=== PATIENT | female | born 1985 | race Hispanic/Latino ===

== ENCOUNTER 2020-07-14 17:00 | Emergency (ER) | payer SELFPAY ==
[2020-07-14] MEDS ORDERED: ALBUTEROL 2.5 MG/3 ML NEBU IH ONE (17:33)
[2020-07-14] MEDS ORDERED: dexAMETHasone 20 MG/5 ML VIAL IV ONE (17:33)
[2020-07-14] MEDS ORDERED: IPRATROPIUM 0.02% NEBU 2.5 ML IH ONE (17:33)
--- NOTE | 2020-07-14 17:33 | Event Note ---
ED Screening Note ED Screening Note: cough three days ago +mucus production 1/2 ppd no hx of asthma postussive vomiting diarrhea for a week +low grade fever +SOB PMHx h pylori, bronchitis no allergies to meds LNMP: last month This initial assessment/diagnostic orders/clinical plan/treatment(s) is/are subject to change based on patients health status, clinical progression and re- assessment by fellow clinical providers in the ED. Further treatment and workup at subsequent clinical providers discretion. Patient/guardian urged not to elope from the ED as their condition may be serious if not clinically assessed and managed. Initial orders include: labs, CXR, neb tx, steroids
[2020-07-14] MEDS ORDERED: SODIUM CHLORIDE 0.9% 1000 ML 1,000 ML IV ONE (18:05)
[2020-07-14] MEDS ORDERED: MAGNESIUM SULFATE 2 GM/50 ML BAG IV ONE (18:05)
--- NOTE | 2020-07-14 18:09 | Emergency Department Report ---
<ALICIA MEDINA - Last Filed: 07/14/20 19:21> - General Chief Complaint: Upper Respiratory Infection Stated Complaint: SOB/CARLINE PUI?: Yes Time Seen by Provider: 07/14/20 17:31 Source: patient Mode of arrival: Ambulatory Limitations: No Limitations - History of Present Illness Initial Comments: 35-year-old female presents to the emergency room for 3-day history of shortness of breath difficulty in breathing productive cough low-grade fever posttussis emesis. Patient states that a headache started with a dry cough on Wednesday and has gotten worse last night to the point she needed to come in. Patient reports she tried to go to several urgent cares but they refused to see her secondary to concern for Covid. Patient denies any past medical history of asthma but does report a history of bronchitis. MD Complaint: fever, cough, nasal congestion Onset/Timin -: days(s) Severity: severe Severity scale (0 -10): 8 Consistency: constant Improves With: nothing Worsens With: activity, deep breaths Associated Symptoms: fever, chills, headache, rhinorrhea, cough, shortness of breath, nausea, vomiting Treatments Prior to Arrival: none - Related Data Previous Rx's Medication Instructions Recorded Last Taken Type Albuterol Sulfate [Proventil Hfa] 1 - 2 puff IH Q6H PRN #1 hfa.aer.ad 07/14/20 Unknown Rx Azithromycin [Zithromax Z-JOSEPH] 250 mg PO DAILY #6 tablet 07/14/20 Unknown Rx Benzonatate [Tessalon Perles] 100 mg PO Q8HR #30 capsule 07/14/20 Unknown Rx Cetirizine HCl [Zyrtec 10mg tab] 10 mg PO DAILY #30 tablet 07/14/20 Unknown Rx Ibuprofen [Motrin] 800 mg PO Q8HR PRN #24 tablet 07/14/20 Unknown Rx Prednisone [predniSONE 10 mg 10 mg PO .TAPER #21 tab.ds.pk 07/14/20 Unknown Rx (6-Day Pack, 21 Tabs)] Allergies Allergy/AdvReac Type Severity Reaction Status Date / Time No Known Allergies Allergy Unverified 07/14/20 17:06 ED Review of Systems Comment: All other systems reviewed and negative ED Past Medical Hx - Past Medical History Previous Medical History?: Yes Additional medical history: bronchitis - Surgical History Past Surgical History?: Yes Additional Surgical History: x 2, Tubaligation, T &A, Foster tooth extraction - Social History Smoking Status: Current Every Day Smoker Substance Use Type: Alcohol - Medications Home Medications: Home Medications Medication Instructions Recorded Confirmed Last Taken Type Albuterol Sulfate [Proventil Hfa] 1 - 2 puff IH Q6H PRN #1 hfa.aer.ad 07/14/20 Unknown Rx Azithromycin [Zithromax Z-JOSEPH] 250 mg PO DAILY #6 tablet 07/14/20 Unknown Rx Benzonatate [Tessalon Perles] 100 mg PO Q8HR #30 capsule 07/14/20 Unknown Rx Cetirizine HCl [Zyrtec 10mg tab] 10 mg PO DAILY #30 tablet 07/14/20 Unknown Rx Ibuprofen [Motrin] 800 mg PO Q8HR PRN #24 tablet 07/14/20 Unknown Rx Prednisone [predniSONE 10 mg 10 mg PO .TAPER #21 tab.ds.pk 07/14/20 Unknown Rx (6-Day Pack, 21 Tabs)] ED Physical Exam - General Limitations: No Limitations General appearance: alert, in distress - Head Head exam: Present: atraumatic, normocephalic - Eye Eye exam: Present: normal appearance - ENT ENT exam: Present: mucous membranes moist - Neck Neck exam: Present: normal inspection, full ROM - Respiratory Respiratory exam: Present: wheezes, prolonged expiratory, other (cough) - Cardiovascular Cardiovascular Exam: Present: bradycardia - GI/Abdominal GI/Abdominal exam: Present: soft, normal bowel sounds - Extremities Exam Extremities exam: Present: normal inspection, full ROM - Back Exam Back exam: Present: normal inspection, full ROM - Neurological Exam Neurological exam: Present: alert, oriented X3, normal gait - Psychiatric Psychiatric exam: Present: normal affect, normal mood - Skin Skin exam: Present: warm, dry, intact, normal color. Absent: rash ED Medical Decision Making - Radiology Data Radiology results: report reviewed Patient: GARFIELD FONTANA MR#: [id number] : 1985 Acct:[id number] Age/Sex: 35 / F ADM Date: 07/14/20 Loc: ED Attending Dr: Ordering Physician: YAW ONEILL Date of Service: 07/14/20 Procedure(s): XR chest routine 2V Accession Number(s): [id number] cc: YAW ONEILL Fluoro Time In Minutes: CHEST 2 VIEWS INDICATION / CLINICAL INFORMATION: Cough and difficulty breathing for 2 days. COMPARISON: None available. FINDINGS: SUPPORT DEVICES: None. HEART / MEDIASTINUM: The heart size and pulmonary vasculature are normal. LUNGS / PLEURA: No significant pulmonary or pleural abnormality. No pneumothorax. ADDITIONAL FINDINGS: No significant additional findings. IMPRESSION: No acute findings. Signer Name: Fabien Smith MD Signed: 07/14/2020 7:10 PM Workstation Name: [id number] Transcribed By: RT Dictated By: Fabien Smith MD Electronically Authenticated By: Fabien Smith MD Signed Date/Time: 07/14/201909 DD/ 08 TD/TT: - Medical Decision Making 35-year-old female presents to the emergency room for 3-day history of shortness of breath difficulty in breathing productive cough low-grade fever posttussis emesis. Patient states that a headache started with a dry cough on Wednesday and has gotten worse last night to the point she needed to come in. Patient reports she tried to go to several urgent cares but they refused to see her secondary to concern for Covid. Patient denies any past medical history of asthma but does report a history of bronchitis. Patient has been ordered CBC, CMP, chest x-ray, IV magnesium 2 mg, normal saline, dexamethasone 10 mg IV. Albuterol and Atrovent neb 10 and 1. ED Disposition Clinical Impression: Chronic bronchitis with acute exacerbation, Shortness of breath, Acute upper respiratory infection Disposition: - TO HOME OR SELFCARE Condition: Stable Instructions: Chronic Bronchitis (ED), Shortness of Breath, Adult, [id number], Upper Respiratory Infection, Adult, [id number], Acute Bronchitis, Adult, [id number], Cough, Adult, [id number] Additional Instructions: All lab test results are nonactionable. Chest x-ray shows no acute cardiopulmonary abnormalities or pneumonitis. Therefore take medication as advised, drink plenty of fluids and follow-up with the primary care physician at [facility] primary care in 3 to 5 days for reevaluation. Return to the ED immediately if symptoms get worse. Consider quitting tobacco smoking habit to improve on the chronic bronchitis. Prescriptions: Ibuprofen [Motrin] 800 mg PO Q8HR PRN #24 tablet PRN Reason: Pain , Severe (7-10) Prednisone [predniSONE 10 mg (6-Day Pack, 21 Tabs)] 10 mg PO .TAPER #21 t ab.ds.pk Albuterol Sulfate [Proventil Hfa] 1 - 2 puff IH Q6H PRN #1 hfa.aer.ad PRN Reason: Dyspnea Benzonatate [Tessalon Perles] 100 mg PO Q8HR #30 capsule Azithromycin [Zithromax Z-JOSEPH] 250 mg PO DAILY #6 tablet Cetirizine HCl [Zyrtec 10mg tab] 10 mg PO DAILY #30 tablet Forms: Work/School Release Form(ED) Print Language: DOMINICAN <JOSE LUIS CARVAJAL - Last Filed: 07/14/20 21:06> ED Review of Systems ROS: Stated complaint: SOB/CARLINE Other details as noted in HPI ED Course Vital Signs 07/14/20 07/14/20 17:06 18:17 Temperature 98 F Pulse Rate 109 H Respiratory 22 Rate Blood Pressure 173/88 ED Medical Decision Making - Lab Data Result diagrams: 07/14/20 19:56 07/14/20 19:56 - Medical Decision Making I assumed care of the patient from Ms. Alberto María MILIAN at shift change at 2000 hours. Patient had presented to the ED with complaint of shortness of breath, persistent cough with subjective fever and posttussive emesis. In the ED, patient received DuoNeb treatment, steroid and magnesium 2 g IV x1. On reevaluation, patient's wheezing resolved with medication, patient felt better and oxygen saturation was 97% in room air. All lab test results were reviewed and are all nonactionable except for acute leukocytosis of 15,600 which is nonspecific. Chest x-ray shows no acute cardiopulmonary abnormalities or pneumonitis. Patient was discharged home on medications and advised to consider quitting tobacco abuse. Patient was also advised to follow-up with her primary care physician at [facility] in 3 to 5 days for reevaluation. Patient was advised return to the ED immediately if symptoms get worse. - Differential Diagnosis Bronchitis; pneumonia; URI; viral syndrome; COVID-19 Critical care attestation.: If time is entered above; I have spent that time in minutes in the direct care of this critically ill patient, excluding procedure time. ED Disposition Is pt being admited?: No Does the pt Need Aspirin: No Time of Disposition: 20:52
--- NOTE | 2020-07-14 19:14 | XRay Report ---
CHEST 2 VIEWS INDICATION / CLINICAL INFORMATION: Cough and difficulty breathing for 2 days. COMPARISON: None available. FINDINGS: SUPPORT DEVICES: None. HEART / MEDIASTINUM: The heart size and pulmonary vasculature are normal. LUNGS / PLEURA: No significant pulmonary or pleural abnormality. No pneumothorax. ADDITIONAL FINDINGS: No significant additional findings. IMPRESSION: No acute findings. Signer Name: Fabien Smith MD Signed: 07/14/2020 7:10 PM Workstation Name: [id number]
[2020-07-14 20:19] LABS: Hematocrit 35.2 % (30.3-42.9); Hemoglobin 10.8 gm/dl (10.1-14.3); Mean Corpuscular HGB Conc 31 % (30-34); Mean Corpuscular Volume 76 fl (79-97); Platelet Count 317 K/mm3 (140-440); Red Blood Count 4.62 M/mm3 (3.65-5.03)
[2020-07-14 20:38] LABS: Alanine Aminotransferase 19 units/L (7-56); Albumin 3.6 g/dL (3.9-5); Blood Urea Nitrogen 10 mg/dL (7-17); Calcium 8.3 mg/dL (8.4-10.2); Hemolysis Index 0
[2020-07-14] MEDS ORDERED: ACETAMINOPHEN 500 MG TAB PO ONE (20:38)
[2020-07-14 20:45] LABS: BUN/Creatinine Ratio 14
[2020-07-14] MEDS ORDERED: KETOROLAC 30 MG/1 ML INJ IV ONE (20:45)
[2020-07-14 21:03] VITALS: BP 137/81
[2020-07-14 21:32] LABS: Band Neutrophils # (Manual) 0.2 K/mm3; Basophils % (Manual) 0 % (0.0-1.8); Eosinophils % (Manual) 0 % (0.0-4.3); Total Cells Counted 100
[2020-07-14 21:35] LABS: Hypochromasia 1+
[2020-07-14 21:37] LABS: Anisocytosis Few; Ovalocytes Rare; Platelet Estimate Consistent w Auto
== END 2020-07-14 21:35 | disposition home or self-care (01) ==
LOC: ED 17:00
DX: J44.1 Chronic obstructive pulmonary disease with (acute) exacerbation (principal)
CPT/HCPCS: 36415; 71046; 80053; 84703; 85007; 85025; 96365; 96366; 96375; 99284; J1885; J3475; J7030